=== PATIENT | female | born 1985 | race Caucasian/White ===

== ENCOUNTER 2016-08-12 14:43 | Emergency (ER) | payer OTHER ==
[~2016-08-12] VITALS: Ht 160 cm; Wt 70.0 kg
[2016-08-12 14:44] VITALS: BP 136/80; PULSE 104; RESP 16; TEMP 98.4; O2SAT 99
--- NOTE | 2016-08-12 18:24 | PD ---
HPI Chief Complaint: Related Problem Time Seen by Provider: 17:54 Travel History International Travel<30 days: No Contact w/Intl Traveler<30days: No Traveled to known affect area: No History of Present Illness HPI YISEL is a 31 y.o. 7 week female presenting with abdominal pain, vaginal bleeding that spontaneously began yesterday morning. She went to her OB , Dr. Dominguez, who performed an U/S and advised the patient to come to the ER when her symptoms continued through today. She describes the pain as a moderate , non-radiating cramping sensation, accompanied by the passage of clots of tissue per vagina. She notes the pain is constant and non-worsening. She does not recall any alleviating or aggravating factors, including trauma. Patient denies experiencing similar symptoms before. She reports having chills last night, but denies chest pain, back pain, dyspnea and fever. She denies smoking, alcohol or drug use during her . YB also denies having any medical conditions or regular medication use. She is allergic to latex. Her LMP was June 23. History Past Medical History Medical History: Denies Significant Hx Past Surgical History Surgical History: No Previous Surgery Family History Family History: Negative Social History Alcohol Use: No Tobacco Use: No Allergies-Medications (Allergen,Severity, Reaction): Coded Allergies: Latex (Verified Allergy, Unknown, 08/12/16) Reported Meds & Prescriptions Reported Meds & Active Scripts Active Keflex (Cephalexin) 500 Mg Cap 500 Mg PO Q8H 5 Days Review of Systems Except as stated in HPI: all other systems reviewed are Neg General / Constitutional: Positive: Chills (last night ) Physical Exam Narrative GENERAL: Alert and oriented, lying in bed comfortably. Speaks in full sentences , sad. SKIN: Warm and dry. HEAD: Atraumatic. Normocephalic. EYES: Pupils equal and round. No scleral icterus. No injection or drainage. ENT: No nasal bleeding or discharge. Mucous membranes pink and moist. NECK: Trachea midline. No JVD. CARDIOVASCULAR: Regular rate and rhythm. RESPIRATORY: No accessory muscle use. Clear to auscultation. Breath sounds equal bilaterally. GASTROINTESTINAL: Abdomen soft, diffusely tender, nondistended. Hepatic and splenic margins not palpable. MUSCULOSKELETAL: Extremities without clubbing, cyanosis, or edema. No obvious deformities. NEUROLOGICAL: Awake and alert. No obvious cranial nerve deficits. Motor grossly within normal limits. Five out of 5 muscle strength in the arms and legs. Normal speech. PSYCHIATRIC: Appropriate mood and affect; insight and judgment normal. Data Data Last Documented VS Vital Signs Date Time Temp Pulse Resp B/P Pulse Ox O2 Delivery O2 Flow Rate FiO2 08/12/16 19:12 98.5 71 16 121/68 100 Room Air Orders Beta Hcg (Quant/Titer) (08/12/16 17:54) Complete Rh (08/12/16 17:54) Us Pelvis (Ques Preg/Ectopic) (08/12/16 ) Urinalysis - C+S If Indicated (08/12/16 17:54) Ed Urine Pregnancytest Poc (08/12/16 17:54) Complete Blood Count With Diff (08/12/16 17:58) Urine Culture (08/12/16 18:03) Labs Laboratory Tests Test 08/12/16 08/12/16 08/12/16 18:03 18:04 18:16 Urine Color YELLOW Urine Turbidity CLEAR Urine pH 5.0 Urine Specific [place] 1.015 Urine Protein TRACE mg/dL Urine Glucose (UA) NEG mg/dL Urine Ketones NEG mg/dL Urine Occult Blood LARGE Urine Nitrite NEG Urine Bilirubin NEG Urine Urobilinogen LESS THAN 2.0 MG/DL Urine Leukocyte Esterase TRACE Urine RBC /hpf Urine WBC 9 /hpf Urine Squamous Epithelial 1 /hpf Cells Urine Mucus FEW /lpf Microscopic Urinalysis Comment CULTURE INDICATED Human Chorionic Gonadotropin, 2049 MIU/ML Quant Blood Type A POSITIVE Rho(D) Type POSITIVE White Blood Count 11.3 TH/MM3 Red Blood Count 4.30 MIL/MM3 Hemoglobin 13.2 GM/DL Hematocrit 39.6 % Mean Corpuscular Volume 92.1 FL Mean Corpuscular Hemoglobin 30.8 PG Mean Corpuscular Hemoglobin 33.4 % Concent Red Cell Distribution Width 13.1 % Platelet Count 187 TH/MM3 Mean Platelet Volume 10.4 FL Neutrophils (%) (Auto) 72.0 % Lymphocytes (%) (Auto) 18.2 % Monocytes (%) (Auto) 8.6 % Eosinophils (%) (Auto) 0.8 % Basophils (%) (Auto) 0.4 % Neutrophils # (Auto) 8.1 TH/MM3 Lymphocytes # (Auto) 2.1 TH/MM3 Monocytes # (Auto) 1.0 TH/MM3 Eosinophils # (Auto) 0.1 TH/MM3 Basophils # (Auto) 0.0 TH/MM3 CBC Comment DIFF FINAL Differential Comment MDM Medical Decision Making Medical Screen Exam Complete: Yes Emergency Medical Condition: No Differential Diagnosis Ectopic , threatened , incomplete , complete , implantation bleed Narrative Course CBC & BMP Diagram 08/12/16 18:16 beta 2048 UA: Bacteriuria Blood type A+ Last 24 hours Impressions Pelvis Ultrasound 08/12/16 0000 Signed Impressions: Service Date/Time: Friday, August 12, 2016 19:06 - CONCLUSION: 1. Negative for intrauterine . Endometrial stripe is thickened to 14 mm. Patient reports passing gestational sac earlier today. 2. 1.6 cm corpus luteum cyst right ovary. No free fluid or other adnexal mass. Clarence Kearney MD The patient is resting comfortably and feels better, is alert and in no distress. The patients results and examination findings were discussed. The repeat examination is unremarkable and benign. The history, exam, diagnostic testing, and current condition do not suggest any significant pathology to warrant further testing, continued ED treatment, admission, or surgical evaluation at this point. The vital signs have been stable. The patient does not have uncontrollable pain, intractable vomiting, or other significant symptoms. The patient's condition is stable and appropriate for discharge. The patient will pursue further outpatient evaluation with a primary care physician or other designated or consulting physician as indicated in the discharge instructions. The patient expressed understanding and was agreeable with this plan. Diagnosis Primary Impression: Asymptomatic bacteriuria Additional Impression: Miscarriage Referrals: [facility] 2 days Additional Instructions: You have a choice when it comes to health care, and we are glad that you chose [facility]. Hopefully, we have met your expectations on today's visit. You are welcome to return to [facility] at any time, as we are committed to meeting the health care needs of our community. Med/Other Pt SpecificInfo: Prescription(s) given Scripts Cephalexin (Keflex)500 Mg Xhw050 Mg PO Q8H 5 Days Ref 0 Prov:John Scales MD 08/12/16 Disposition: 01 DISCHARGE HOME Condition: Stable John Scales MD Aug 12, 2016 18:24
[2016-08-12 18:37] LABS: AUTOMATED NEUTROPHIL # 8.1 TH/MM3 (1.8-7.7); BASOPHIL % 0.4 % (0.0-2.0); EOSINOPHIL # 0.1 TH/MM3 (0-0.4); EOSINOPHIL % 0.8 % (0.0-4.0); HEMATOCRIT 39.6 % (35.0-46.0); HEMO FLAGS DIFF FINAL; LYMPH % 18.2 % (9.0-44.0); LYMPHOCYTE # 2.1 TH/MM3 (1.0-4.8); MEAN CELL VOLUME 92.1 FL (80.0-100.0); MEAN CORPUSCULAR HEMOGLOBIN 30.8 PG (27.0-34.0); MEAN CORPUSCULAR HGB CONC 33.4 % (32.0-36.0); MONO % 8.6 % (0.0-8.0); PLATELET COUNT 187 TH/MM3 (150-450); RED CELL DISTRIBUTION WIDTH 13.1 % (11.6-17.2); WHITE BLOOD COUNT 11.3 TH/MM3 (4.0-11.0)
[2016-08-12 18:45] LABS: BLOOD, URINE LARGE (NEG); COMMENT (UR) CULTURE INDICATED; CULTURE IF INDICATED CULTURE INDICATED; GLUCOSE,URINE NEG (NEG); KETONE, URINE NEG (NEG); MUCUS URINE FEW /lpf (OCC); NITRITE,URINE NEG (NEG); SQUAMOUS EPITHELIAL CELL URINE 1 /hpf (0-5); URINE COLOR YELLOW (YELLW/STRAW)
[2016-08-12 18:57] LABS: BETA HCG QUANT 2049 MIU/ML (0-5)
[2016-08-12 19:12] VITALS: BP 121/68; PULSE 71; RESP 16; TEMP 98.5; O2SAT 100
[2016-08-12] MEDS ORDERED: CEPH-460 PO (20:03)
--- NOTE | 2016-08-12 20:04 | RADRPT ---
EXAM DATE/TIME: 08/12/2016 19:06 [facility] COMPARISON: No previous studies available for comparison. INDICATIONS : Ectopic. LAB(S): [facility] MEDICAL HISTORY : None. SURGICAL HISTORY : Appendectomy. ENCOUNTER: Initial ACUITY: 2 days PAIN SCORE: 1/10 LOCATION: Bilateral pelvis MEASUREMENTS: UTERUS: 6.1 x 4.2 x 3.5 cm ENDOMETRIAL STRIPE: 14 mm RIGHT OVARY: 2.2 x 2.3 x 2.4 cm LEFT OVARY: 1.4 x 2.0 x 1.4 cm FREE FLUID: No FINDINGS: The endometrium is heterogeneous in appearance. Endometrium measures up to 14 mm in diameter. Patient reports passing gestational sac earlier today. No intrauterine on the current exam. Probab le corpus luteum cyst right ovary measuring 1.6 cm. Left ovary unremarkable. No free fluid. CONCLUSION: 1. Negative for intrauterine . Endometrial stripe is thickened to 14 mm. Patient reports pas sing gestational sac earlier today. 2. 1.6 cm corpus luteum cyst right ovary. No free fluid or other adnexal mass. Clarence Kearney MD on August 12, 2016 at 19:58 Board Certified Radiologist. This report was verified electronically.
[2016-08-12 20:20] VITALS: BP 118/63; TEMP 98.5
--- NOTE | 2016-08-14 09:44 | RADRPT ---
EXAM DATE/TIME: 08/12/2016 19:06 [place] Corrected on: August 14, 2016; Corrected exam description [facility] COMPARISON: No previous studies available for comparison. INDICATIONS : Ectopic. LAB(S): [facility] MEDICAL HISTORY : None. SURGICAL HISTORY : Appendectomy. ENCOUNTER: Initial ACUITY: 2 days PAIN SCORE: 1/10 LOCATION: Bilateral pelvis MEASUREMENTS: UTERUS: 6.1 x 4.2 x 3.5 cm ENDOMETRIAL STRIPE: 14 mm RIGHT OVARY: 2.2 x 2.3 x 2.4 cm LEFT OVARY: 1.4 x 2.0 x 1.4 cm FREE FLUID: No FINDINGS: The endometrium is heterogeneous in appearance. Endometrium measures up to 14 mm in diameter. Patient reports passing gestational sac earlier today. No intrauterine on the current exam. Probab le corpus luteum cyst right ovary measuring 1.6 cm. Left ovary unremarkable. No free fluid. CONCLUSION: 1. Negative for intrauterine . Endometrial stripe is thickened to 14 mm. Patient reports pas sing gestational sac earlier today. 2. 1.6 cm corpus luteum cyst right ovary. No free fluid or other adnexal mass. Clarence Kearney MD on August 12, 2016 at 19:58 Board Certified Radiologist. This report was verified electronically.
== END 2016-08-12 20:30 | disposition home or self-care (01) ==
LOC: NEPD 14:43
DX: O03.9 Complete or unspecified spontaneous abortion without complication (principal); R82.71 Bacteriuria
CPT/HCPCS: 76700; 76817; 81001; 84702; 84703; 85025; 86901; 87086